=== PATIENT | female | born 1995 | race African-American/Black ===

== ENCOUNTER 2016-11-25 14:59 | Emergency (ER) | payer OTHER ==
[~2016-11-25 14:59] MED LIST: FLEXERIL10 MG PO; MEDROL DOSEPAK4 MG PO; ORUDIS75 M1 PO
[2016-11-25 15:39] LABS: URINE SOURCE CLEAN CATCH
[2016-11-25 15:43] LABS: URINE APPEARANCE CLEAR; URINE BILIRUBIN NEG (NEG); URINE BLOOD NEG (NEG); URINE COLOR YELLOW; URINE GLUCOSE NEG (NEG); URINE KETONE NEG (NEG); URINE LEUKOCYTE ESTERASE 1+ (NEG); URINE NITRATE NEG (NEG); URINE PROTEIN NEG (NEG); URINE SPECIFIC GRAVITY 1.021 (1.003-1.035)
[2016-11-25 15:46] LABS: CULTURE INDICATED? NO
[2016-11-27 15:57] LABS: CHLAMYDIA TRACH Detected (Not Detected); N GONOR Not Detected (Not Detected)
== END 2016-11-25 17:26 | disposition home or self-care (01) ==
LOC: CED 14:59 → CFTX 14:59 → CED 16:35 → CFTX 16:35
PROVIDERS: Nurse Practitioner
DX: A59.03 Trichomonal cystitis and urethritis (principal); N76.0 Acute vaginitis
CPT/HCPCS: 81003; 84703; 87491; 87591; 87808; 87905; 96372; 99284; J0696

== ENCOUNTER 2017-01-15 10:26 | Emergency (ER) | payer OTHER ==
--- NOTE | ~2017-01-15 | US61 ---
[facility] A Service of [facility] RADIOLOGY TEXT RESULTS PATIENT: ELLIOTT ALFRED LOCATION: [place] : [birth year] UNIT #: [id number] AGE: [address]: HORTENCIA NEWTON SEX: F ORDER DR: [id number] [facility] [place] [address] [place], [place] [address] [id number] E MR#: [id number] Acc #: [id number] NAME: ELLIOTT ALFRED : 1995 SEX: F STUDY DATE/TIME: 01/15/2017 13:10 UNIT: [id number] ROOM: STUDY DESCRIPTION: US /Mat <14Wk / Attending Physician: Hortencia Newton Aprn Ordering Physician: Hortencia Newton Aprn Primary Care Physician: Primary Care Physician No MEDICAL IMAGING REPORT This report is preliminary unless electronic signature is present EXAM sonogram HISTORY Pelvic pain, vaginal discharge x2 weeks. Quantitative HCG 17,673. LMP 12/04/2016. FINDINGS Real-time examination was performed utilizing both transabdominal and endovaginal scanning. Examination demonstrates an early intrauterine with gestational sac with normal decidual reaction. Normal sac size. [place]-rump length was obtained at 5 mm, corresponding to a 6-week gestation. heart rate documented at 104 beats per minute. Gestational sac measurements corresponded to an averaged gestational age of 6 weeks 2 days. Ovaries and adnexa unremarkable. No free fluid. Normal yolk sac. IMPRESSION Normal early single intrauterine with an averaged gestational age by ultrasound of 6 weeks 2 days. This corresponds to an EDC of September 08, 2017. Dictated by... Coreen Abdul M.D. THIS IS AN ELECTRONICALLY VERIFIED REPORT Coreen Abdul M.D. at 01/16/2017 7:28 AM EVELINA/onel TD: 01/15/2017 20:58 JOB #: [id number] [facility] A Service of [facility] RADIOLOGY TEXT RESULTS PATIENT: ELLIOTT ALFRED LOCATION: [place] : [birth year] UNIT #: [id number] AGE: [address]: HORTENCIA NEWTON SEX: F ORDER DR: MEDICAL IMAGING REPORT Page 1 of 1 COPY
[2017-01-15 11:33] LABS: BASOPHIL% 0.5 % (0-2.5); EOSINOPHIL# 0.3 X10e3 (0-0.7); EOSINOPHIL% 5.6 % (0.0-7.0); HEMATOCRIT 39.6 % (35.0-45.0); HEMOGLOBIN 12.9 gm/dL (12.0-16.0); LYMPHOCYTE# 2.3 X10e3 (1.0-3.5); LYMPHOCYTE% 39.4 % (17.0-45.0); MEAN CELL VOLUME 89.8 FL (83-96); MEAN CORPUSCULAR HEMOGLOBIN 29.2 PG (28-34); MEAN CORPUSCULAR HGB CONC 32.5 g/dL (30-36); MEAN PLATELET VOLUME 8.3 FL (6.5-11.5); MONOCYTE# 0.6 X10e3 (0-1.0); MONOCYTE% 11.3 % (3.0-12.0); NEUTROPHIL# 2.5 X10e3 (1.5-7.1); NEUTROPHIL% 43.2 % (40-75); PLATELET COUNT 247 X10e3 (140-420); RED BLOOD COUNT 4.41 X10e (3.90-5.30); RED CELL DISTRIBUTION WIDTH 14.7 % (11.0-15.5); WHITE BLOOD COUNT 5.7 X10e3 (4.0-10.5)
[2017-01-15 11:34] LABS: DIFF IND NO
[2017-01-15 11:51] LABS: URINE SOURCE CLEAN CATCH
[2017-01-15 12:05] LABS: URINE APPEARANCE CLEAR; URINE BILIRUBIN NEG (NEG); URINE BLOOD NEG (NEG); URINE COLOR YELLOW; URINE GLUCOSE NEG (NEG); URINE KETONE NEG (NEG); URINE LEUKOCYTE ESTERASE TRACE (NEG); URINE NITRATE NEG (NEG); URINE PROTEIN NEG (NEG); URINE SPECIFIC GRAVITY 1.017 (1.003-1.035); URINE UROBILINOGEN 0.2 MG/DL (NEG)
[2017-01-15 12:07] LABS: ALBUMIN SERUM 3.9 g/dL (3.5-5.0); BILIRUBIN, DIRECT 0.1 mg/dL (0.0-0.2); BILIRUBIN,INDIRECT 0.7 mg/dL (0.0-0.9); BILIRUBIN,TOTAL 0.8 mg/dL (0.2-2.0); CALCIUM SERUM 8.9 mg/dL (8.4-10.2); CREATININE SERUM 0.7 mg/dL (0.6-1.4); GLOM FILT RATE Estimated 140.5 mL/min (>60); POTASSIUM 3.9 mmol/L (3.5-5.1); PROTEIN TOTAL SERUM 7.4 g/dL (6.0-8.3)
[2017-01-15 12:08] LABS: URBCS1 AUWI 0-2 /[HPF] (0-2); URINE BACTERIA AUWI NEG (NEGATIVE); URINE SQUAMOUS EPITHELIAL CELL NONE SEEN /[HPF]; UWBCS1 AUWI 0-2 (0-5)
[2017-01-15 12:13] LABS: CULTURE INDICATED? NO
[2017-01-17 00:48] LABS: CHLAMYDIA TRACH Not Detected (Not Detected); N GONOR Not Detected (Not Detected)
== END 2017-01-15 14:30 | disposition home or self-care (01) ==
LOC: CFTX 10:26 → CED 10:26 → CFTX 11:18
PROVIDERS: Nurse Practitioner Family
DX: O23.591 Infection of other part of genital tract in pregnancy, first trimester (principal); N76.0 Acute vaginitis; O99.89 Other specified diseases and conditions complicating pregnancy, childbirth and the puerperium; R19.7 Diarrhea, unspecified; R35.0 Frequency of micturition; O99.011 Anemia complicating pregnancy, first trimester; O99.331 Smoking (tobacco) complicating pregnancy, first trimester; F17.210 Nicotine dependence, cigarettes, uncomplicated; Z3A.01 Less than 8 weeks gestation of pregnancy
CPT/HCPCS: 36415; 76801; 80048; 80076; 81003; 83690; 84702; 84703; 85025; 86900; 86901; 87210; 87491; 87591; 87808; 87905; 99284